=== PATIENT | male | born 1985 | race Hispanic/Latino ===

== ENCOUNTER 2025-02-08 01:12 | Observation (INO) | payer OTHER, SELFPAY ==
[2025-02-07] VITALS (8 sets, daily range): BP systolic 132–162; BP diastolic 75–94; BMI 25.7
[2025-02-07 22:29] LABS: Hematocrit 45.4 % (39.0-52.0); Hemoglobin 14.5 g/dL (13.0-18.0); Mean Corp Hgb Conc. 31.9 g/dL (33.0-37.0); Mean Corpuscular Volume 81.5 fL (80.0-94.0); Nucleated Red Blood Cells % 0 % (-); Platelet Count 274 10^3/uL (130-400); Red Cell Dist. Width 14.5 % (11.5-14.5)
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
[2025-02-07 22:39] LABS: INR 1.00; PT 13.5 Sec (11.4-14.6)
[2025-02-07 22:40] LABS: APTT 29.5 Sec (23.4-35.0)
[2025-02-07] MEDS: NITROGLYCERIN PREMIX 250 IV (22:58)
[2025-02-07 23:04] LABS: ALT (SGPT) 60 U/L (0-50); AST (SGOT) 40 U/L (17-59); Albumin 4.7 g/dl (3.5-5.0); Alkaline Phosphatase 55 U/L (38-126); Blood Urea Nitrogen 19 mg/dl (9-20); Calcium 9.5 mg/dl (8.4-10.2); Carbon Dioxide 28 mmol/L (22-30); Chloride 102 mmol/L (98-107); Estimated Creatinine Clearance 71 ml/min; Glucose 78 mg/dl (70-99); Potassium 4.1 mmol/L (3.5-5.1); Sodium 138 mmol/L (135-145); Total Protein 7.7 g/dl (6.3-8.2); eGFR > 60.00
[2025-02-07 23:10] LABS: Troponin I < 0.012 ng/ml
[2025-02-08] VITALS (15 sets, daily range): BP systolic 106–133; BP diastolic 60–81; BMI 25.1
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
--- NOTE | 2025-02-08 03:29 | PTCARENOTE ---
Rec'd pt as admission from ED. Pt AAO*3, VSS, and SR on TELE monitor. Pt [place] speaking with hospital diplomatic interpreter/translator at bedside. PT denies any pain or discomfort. Admission complete and pt oriented to room using diplomatic interpreter/translator. Pt resting with call
mora in reach. Nitro infusing as ordered. See MAR and flowchart for full pt care and assessment.
[2025-02-08 03:33] LABS: Hematocrit 41.0 % (39.0-52.0); Hemoglobin 13.3 g/dL (13.0-18.0); Mean Corp Hgb Conc. 32.4 g/dL (33.0-37.0); Mean Corpuscular Volume 80.6 fL (80.0-94.0); Platelet Count 256 10^3/uL (130-400); Red Cell Dist. Width 14.5 % (11.5-14.5)
[2025-02-08 03:57] LABS: Blood Urea Nitrogen 20 mg/dl (9-20); Calcium 9.1 mg/dl (8.4-10.2); Carbon Dioxide 23 mmol/L (22-30); Chloride 108 mmol/L (98-107); Estimated Creatinine Clearance 98 ml/min; Glucose 95 mg/dl (70-99); HDL Cholesterol 50 mg/dl; LDL Cholesterol, Calculated 61 mg/dl; Potassium 4.2 mmol/L (3.5-5.1); Sodium 139 mmol/L (135-145); Very Low Density Lipoprotein 19 mg/dl (0-30); eGFR > 60.00
[2025-02-08 04:09] LABS: Troponin I < 0.012 ng/ml
[2025-02-08 05:57] LABS: Troponin I < 0.012 ng/ml
[2025-02-08 09:00] LABS: Glycohemoglobin (HgbA1c) 5.5 % (4.0-5.6)
--- NOTE | 2025-02-08 09:25 | PTCARENOTE ---
Assumed care of pt from night custodian RN. Pt is primarily Tajik speaking. Ticket Collector Or Usher used. AAOx3. NSR/SB on tele, HRs 50s-60s. Pt denies chest pain/discomfort. Remains on Nitro gtt at 5mcg/min. Plan for Echo today. Assessment documented. Pt resting
in bed, family at bedside.
--- NOTE | 2025-02-08 09:31 | PTCARENOTE ---
Nitro gtt off. Pt remains chest pain free at this time.
[2025-02-08] MEDS: LOW STRENGTH ASPIRIN 81 MG PO (10:01)
--- NOTE | 2025-02-08 10:58 | CON.CAR ---
Addendum entered and electronically signed by Marian Royal DO 02/08/25 12:26:
I saw and examined the patient.
The 4Th Grade Math Teacher's note was reviewed and I agree with the note.
Comment: Patient was seen and examined with multiple family members at bedside. Patient is a 40-year-old primarily Wolof speaking male with past medical history of hyperlipidemia and GERD who presents for evaluation of tachycardia and chest pain.
He reports he had an episode approximately 1 or 2 months ago where he became angry and then felt strong heartbeats and chest pain. He then had another episode last evening where he got angry at his children and felt strong heartbeats followed by
chest pain and pressure. He states it lasted about 20 minutes, then improved but did not resolve until about the 3-hour mario. He then states it came back making him come to the ER for evaluation. He reports some associated back and neck pain with
tingling in both arms as well as some dizziness and chills. He reports cocaine use but does not use 'very often'. Cardiology consulted for further evaluation. He is currently chest pain-free; Trops serially negative.
Hemoglobin 13.3, WBC 6.6, platelets 256. Sodium 139, potassium 4.2, BUN/creatinine 20/0.8. A1c 5.5%. ALT 60, AST 40. Troponin serially less than 0.012. Total cholesterol 130, triglycerides 97, LDL 61, HDL 50.
General: No acute distress, AAOX3
Neck: Negative JVD
Heart: Regular, Negative S3 positive S1/S2, Negative S4, No murmur
Lungs: CTA b/l, negative wheezes/rales/rhonchi
Abd: Positive BS, NT/ND, neg rebound/rigidity/guarding
Ext: Negative cyanosis/clubbing/edema
Neuro: nonfocal
Plan:
Chest pain with abnormal EKG and serially negative troponins.
-Hemodynamically stable
- Blood pressure initially elevated on admission now normotensive off IV nitroglycerin
- No arrhythmias on telemetry
- Echocardiogram essentially normal with no significant valve disease, normal biventricular systolic function and no pericardial effusion
- Will arrange for stress echocardiogram
- If this is normal plan for discharge
- Continue outpatient atorvastatin; LDL 61
- Social tobacco use�cessation strongly advised
- Social cocaine use�cessation strongly advised
Original Note:
Consultation
Consultation Request
Date/Time Consultation Performed: 02/08/25
Requesting Provider: Dr. Meyer
Performing Provider: Sherry Cox PA-C for Dr. Royal
Reason for Consultation: CP
Medical History
-
Chief Complaint: CP
History of Present Illness:
Patient is a 40-year-old primarily Wolof speaking male with past medical history of hyperlipidemia and GERD who presents for evaluation of tachycardia and chest pain. He reports he had an episode approximately 1 or 2 months ago where he became
angry and then felt strong heartbeats and chest pain. He then had another episode last evening where he got angry at his children and felt strong heartbeats followed by chest pain and pressure. He states it lasted about 20 minutes, then improved
but did not resolve until about the 3-hour maroi. He then states it came back making him come to the ER for evaluation. He reports some associated back and neck pain with tingling in both arms as well as some dizziness and chills. He reports
cocaine use but does not use 'very often'. States he last used last week. Cardiology consulted for further evaluation. Trops serially negative.
PMH:
HLD
GERD
cocaine use
Past Medical History
Past Medical History: Other (in HPI)
Social History
Tobacco: Non-Smoker
Alcohol: None
Drug: Cocaine
Personal:
Living: With Family
Family History
Family History: Cancer
Allergies / Home Medications
Allergy/AdvReac Type Severity Reaction Status Date / Time
No Known Allergies Allergy Unverified 02/07/25 22:17
Review of Systems
-
History Source: Patient
All other systems: Negative unless noted
Physical Exam
Vital Signs
Temp Pulse Resp BP Pulse Ox
98 F 75 14 115/60 98
02/08/25 07:38 02/08/25 07:45 02/08/25 07:38 02/08/25 07:40 02/08/25 07:40
Lab Results
02/08/25 03:07
02/08/25 03:07
Troponin I Cancelled 02/08/25 08:12
Physical Exam
General: No Apparent Distress and Comfortable
HEENT: Normocephalic, Anicteric and Moist Mucous Membranes
Respiratory: Clear and Non Labored Respirations
Cardiac: S1/S2 and Regular Rhythm
GI: Soft, Non Tender, Non Distended and Normal Bowel Sounds
Musculoskeletal: No Clubbing, No Cyanosis and No Edema
Skin: Warm and Dry
Neuro: AO x 3
Impression / Plan
-
Primary Coverage Specialist: none prior to admission
Assessment:
Presentation with strong heart beats, CP
Negative trops x3
Abnormal EKG
HLD
GERD
cocaine use
ECHO 02/08/25: pending
Plan:
- Patient presents with 'strong heartbeat and chest pain and pressure which started last evening
- EKG abnormal with septal/lateral ST elevation despite serially negative troponins, follow serially
- Patient presently chest pain-free. IV nitro has been weaned off
- Urgent echocardiogram
- Would consider for stress echo today pending results of echo
- added asa 81mg daily. was given 324mg asa in ER 02/08
- LDL 61. continue OP cholesterol regimen
- in SR/SB on review of tele
- We discussed cessation of cocaine use given risk for cardiac complications
- d/w nursing
- blueprint tracer used, family at bedside.
- d/w hospitalist
Data Reviewed
-
EKG: Tracing Personally Visualized and interpreted
Labs: Labs Reviewed by me
Old Records: Reviewed
--- NOTE | 2025-02-08 15:13 | W.PN.HOSP.TC ---
Today's Communication/Plan
-
Stress echo pending discharge
Assessment / Plan
Assessment / Plan
Impression/plan
Presentation with chest pain and abnormal EKG
Cocaine use disorder
Concern for acute coronary syndrome possibly related to cocaine.
Currently chest pain-free
Negative cardiac markers
Echocardiogram with preserved biventricular function with no regional wall motion abnormalities.
Plan for stress echo.
If negative would be okay to discharge home.
Extensively counseled on quitting cocaine
Anticipated Discharge: Within 24 hours
Subjective/Interval History
-
Date of Service: February 08, 2025
Objective Data
-
Labs:
Laboratory Results
02/08/25
03:07
WBC 6.6
Hgb 13.3
Hct 41.0
Plt Count 256
Sodium 139
Potassium 4.2
Chloride 108 H
Carbon Dioxide 23
BUN 20
Creatinine 0.8
Glucose 95
Calcium 9.1
Vital Signs:
Vital Signs
Temp Pulse Resp BP Pulse Ox
98.0 F 60 16 120/69 98
02/08/25 11:32 02/08/25 13:30 02/08/25 11:32 02/08/25 11:31 02/08/25 11:32
Physical Exam
-
General: Well Developed and No Apparent Distress
HEENT: Normocephalic, Atraumatic and Moist Mucous Membranes
Respiratory: Clear to Auscultation
Cardiac: Regular Rhythm and S1/S2; Negative Murmur, Rub or Gallop
GI: Soft, Nontender, Nondistended and Normal Bowel Sounds; Negative Organomegaly
Rectal: Deferred by Provider
Musculoskeletal: No Clubbing, No Cyanosis and No Edema
Skin: Negative Rash
Neuro: Nonfocal/Grossly Intact
--- NOTE | 2025-02-08 16:01 | W.DCSUMMARY ---
Discharge Summary
Discharge Data
Date of Admission: 02/08/25
Date of Discharge: 02/08/25
-
Pending Results: No
Hospital Course
Presentation with chest pain and abnormal EKG
Cocaine use disorder
Concern for acute coronary syndrome possibly related to cocaine.
Currently chest pain-free
Negative cardiac markers
Echocardiogram with preserved biventricular function with no regional wall motion abnormalities.
Plan for stress echo.
Stress echocardiogram with no evidence of ischemia.
Extensively counseled on quitting cocaine
Discharge Plan
-
Patient Disposition: Home (Routine Discharge)
Discharge Diagnosis/Procedures: Chest pain
Condition: Good
Diet: Regular
Referrals:
NONE,* [Family Provider, Internal Medicine]
Prescriptions:
New
atorvastatin 40 mg Tablet
40 mg PO QPM Qty: 30 0RF
aspirin 81 mg Tablet,Chewable
81 mg PO DAILY Qty: 30 0RF
Discharge Date and Time
Print Language: ALBANIAN
--- NOTE | 2025-02-08 16:10 | CM ---
Reviewed chart. Met with Mr. Hernandez to review discharge plans. He states prior to admission he resides with his spouse and children in a second floor walk-up apartment. He states prior to admission he was independent with ambulation and adls. He
states he does not have any DME in the home. He states he currently does not have any Health insurance. [facility]. Medical work-up in progress. The discharge plan is to return
home with his spouse and children when medically stable.
[2025-02-08] MEDS: LIPITOR 40 MG PO (16:49)
== END 2025-02-08 17:17 | disposition home or self-care (01) ==
LOC: IVU 01:12
PROVIDERS: Emergency Medicine; ADMITTING PHYSICIAN Internal Medicine; ATTENDING PHYSICIAN Internal Medicine; CONSULT PHYSICIAN Internal Medicine Cardiovascular Disease; EMERGENCY PHYSICIAN Emergency Medicine
DX: R07.89 Other chest pain (principal); R94.31 Abnormal electrocardiogram [ECG] [EKG]; F14.90 Cocaine use, unspecified, uncomplicated; E78.00 Pure hypercholesterolemia, unspecified; K21.9 Gastro-esophageal reflux disease without esophagitis; Z79.899 Other long term (current) drug therapy
CPT/HCPCS: 80048; 80053; 80061; 83036; 84484; 85025; 85027; 85610; 85730; 93005; 93017; 93306; 93350; 96374; 99285; G0378